=== PATIENT | male | born 1990 | race Caucasian/White ===

== ENCOUNTER 2022-08-25 10:31 | Outpatient (CLI) | payer BC, SELFPAY ==
--- NOTE | ~2022-08-25 | MR_ITS ---
EXAMINATION: MR lumbar spine wo con DATE: 08/25/2022 11:41 INDICATION: Low back pain radiating down the right leg. Right-sided sciatica. TECHNIQUE: Magnetic resonance imaging (MRI) of the lumbar spine was performed without intravenous con trast. Sequences included sagittal T2-weighted FSE, sagittal T2-weighted FS FSE, sagittal T1-weighted FSE, and axial T2-weighted FSE. COMPARISON: None FINDINGS: Bone alignment is normal. There are Schmorl's nodes at most levels. There is mildly decreas ed disc height at L4-L5 and L5-S1. The distal spinal cord signal intensity is normal. The conus medul leny is at L1. The following disc levels are specifically discussed: L1-L2: The disc does not extend beyond the endplate margin. There is mild bilateral facet joint osteo arthritis. There is no neural foraminal stenosis. There is no central canal stenosis. L2-L3: The disc does not extend beyond the endplate margin. There is mild bilateral facet joint osteo arthritis. There is no neural foraminal stenosis. There is no central canal stenosis. L3-L4: The disc is mildly bulging. There is mild bilateral facet joint osteoarthritis. There is mild left neural foraminal stenosis. There is no central canal stenosis. L4-L5: The disc is bulging and has an annular fissure. There is mild bilateral facet joint osteoarthr itis. There is moderate right and mild left neural foraminal stenosis. There is mild central canal st enosis. L5-S1: The disc is bulging with superimposed right subarticular zone extrusion with mass effect on ri ght S1 nerve root in right lateral recess. There is moderate bilateral facet joint osteoarthritis. Th ere is mild bilateral neural foraminal stenosis. There is mild central canal stenosis. There is moder ate stenosis of right lateral recess. IMPRESSION: 1. Moderate lower lumbar spondylosis. Of note, an extrusion at L5-S1 exerts mass effect on right S1 n erve root. Reviewed, dictated and finalized at location A. IMPRESSION: 1. Moderate lower lumbar spondylosis. Of note, an extrusion at L5-S1 exerts mas s effect on right S1 nerve root.
== END 2022-08-25 10:32 ==
LOC: MICIMG 10:34
PROVIDERS: PCP Nurse Practitioner; Visit Provider Nurse Practitioner
DX: M54.31 Sciatica, right side (principal); M54.50 Low back pain, unspecified; M47.816 Spondylosis without myelopathy or radiculopathy, lumbar region
CPT/HCPCS: 72148